=== PATIENT | female | born 1965 | race Caucasian/White ===

== ENCOUNTER 2019-09-30 04:23 | Emergency (ER) | payer SELFPAY ==
[~2019-09-30] VITALS: Ht 162.6 cm; Wt 42.7 kg
[2019-09-30 04:24] VITALS: Ht 162.6 cm; Wt 42.7 kg
[2019-09-30 05:01] LABS: BASOPHILS 0.1 % (0-2); EOSINOPHILS 2.8 % (0-7); HEMATOCRIT 42.8 % (36.0-48.0); HEMOGLOBIN 13.5 g/dL (12-16); IMMATURE GRANULOCYTES 0.3 % (0-5); MCH 26.5 pg (26.0-34.0); MCHC 31.5 g/dL (31.0-37.0); MCV 83.9 fL (80.0-100.0); MEAN PLATELET VOLUME 8.9 fL (7.4-10.4); MONOCYTES 9.1 % (2-11); NEUTROPHILS 70.7 % (40-80); PLATELET COUNT 337 10x3/uL (130-400); RDW 21.7 % (11.5-14.5); WBC 11.4 10x3/uL (4.8-10.8)
[2019-09-30 05:14] LABS: CALC OSMOLALITY 267 mosm/kg (275-300); CARBON DIOXIDE 27.7 mmol/L (21.0-32.0); CHLORIDE - SERUM 99 mmol/L (98-107); CREATININE - SERUM 0.9 mg/dL (0.6-1.3); GLUCOSE 95 mg/dL (74-106); POTASSIUM - SERUM 3.7 mmol/L (3.5-5.1); SODIUM 132 mmol/L (136-145); UREA NITROGEN 22 mg/dL (7-18); eGFR NON AFRICAN AMERICAN 70 mL/min (90-120)
[2019-09-30 05:15] LABS: APTT 29.3 SECONDS (22.8-39.4); INR 1.02 (0.85-1.17); PROTIME 13.4 SECONDS (11.6-15.0)
[2019-09-30 05:29] LABS: ALBUMIN 3.1 g/dL (3.4-5.0); ALKALINE PHOSPHATASE 133 U/L (30-120); ALT (SGPT) 17 U/L (10-68); BILIRUBIN - TOTAL 0.18 mg/dL (0.2-1.3); CKMB 1.6 U/L (0.0-3.6); CREATINE KINASE 52 UL (21-215); MAGNESIUM - SERUM 2.5 mg/dL (1.8-2.4); THYROID STIMULATING HORMONE 1.42 uIU/mL (0.36-3.74)
[2019-09-30 05:30] LABS: TROPONIN-I < 0.017 ng/mL (0.000-0.060)
[2019-09-30 05:37] VITALS: BP 116/80
== END 2019-09-30 05:37 | disposition left against medical advice (07) ==
LOC: D.ER 04:23
PROVIDERS: Family Medicine
DX: I63.9 Cerebral infarction, unspecified (principal); Z85.118 Personal history of other malignant neoplasm of bronchus and lung; Z53.29 Procedure and treatment not carried out because of patient's decision for other reasons